=== PATIENT | male | born 1990 | race Caucasian/White ===

== ENCOUNTER 2017-07-04 05:05 | Emergency (ER) | payer OTHER, MEDICAID ==
[~2017-07-04] VITALS: Ht 170.2 cm; Wt 54.4 kg
[~2017-07-04 05:05] MED LIST: ALPRAZOLAM 0.0.25 MG PO; AMOXICILLIN 50500 MG PO; AMOXICILLIN500 M1 PO; BACTRIM DS TAB1 EACH PO; FLEXERIL PO; HYDROCODONE-AP1 EAC6 PO; IBUPROFEN 200200 M1 PO; IBUPROFEN 600600 M1 PO; IBUPROFEN 800800 M1 PO; IBUPROFEN 800800 MG PO; KEFLEX500 MG PO; LEVAQUIN 500 M500 M2 PO; LIDOCAINE VISC100 M1 SWISH&SPIT; LIDOCAINE VISC100 ML SWISH&SPIT; NAPROSYN500 MG PO; NAPROXEN 375 M375 M1 PO; NOHOMEMEDICATIONS; NORCO 10-325 T1 EAC1 PO; NORCO 5-325 TA1 EAC1 PO; NORCO 5-325 TA1 EACH PO; OTHER MISCELL; PENICILLIN V P500 MG PO; ROBAXIN 750 MG750 M1 PO; ROBAXIN500 MG PO; TRAMADOL 50 MG50 MG PO; TYLENOL325 MG PO; ULTRAM 50MG TAB50 MG PO; VEETIDS 250MG250 M1 PO; VICODIN 5-5001 EACH PO; XANAX 1 MG TABLE1 MG PO; XANAX1 MG; ZOFRAN ODT4 MG PO
[2017-07-04] MEDS ORDERED: NORCO 5-325 TA1 EACH PO (06:01)
[2017-07-04 06:27] VITALS: BP 131/88
== END 2017-07-04 06:28 | disposition home or self-care (01) ==
LOC: M.ERS 05:05
DX: S63.8X2A Sprain of other part of left wrist and hand, initial encounter (principal); F17.210 Nicotine dependence, cigarettes, uncomplicated; F41.9 Anxiety disorder, unspecified; Z88.5 Allergy status to narcotic agent; Z88.6 Allergy status to analgesic agent; Y04.2XXA Assault by strike against or bumped into by another person, initial encounter; Y93.89 Activity, other specified; Y92.89 Other specified places as the place of occurrence of the external cause; Y99.8 Other external cause status

== ENCOUNTER 2017-11-04 12:41 | Emergency (ER) | payer OTHER, MEDICAID ==
[~2017-11-04] VITALS: Ht 170.2 cm; Wt 54.4 kg
[2017-11-04] MEDS ORDERED: SEROQUEL 50 MG50 MG PO (12:57)
[2017-11-04] MEDS ORDERED: METHADOSE10 MG (12:58)
[2017-11-04 13:24] LABS: URINE BILIRUBIN NEGATIVE (Negative); URINE BLOOD NEGATIVE (Negative); URINE CLARITY CLEAR; URINE COLOR YELLOW; URINE GLUCOSE-RANDOM NEGATIVE (Negative); URINE KETONES NEGATIVE (Negative); URINE LEUKOCYTES-REFLEX NEGATIVE (Negative); URINE NITRITE-REFLEX NEGATIVE (Negative); URINE PROTEIN NEGATIVE (Negative); URINE SPECIFIC GRAVITY 1.015 (1.005-1.030)
[2017-11-04 13:44] LABS: ABSOLUTE EOSINOPHILS 0.2 thou/uL (0.0-0.7); ABSOLUTE LYMPHOCYTES 1.2 thou/uL (0.8-5.3); ABSOLUTE MONOCYTES 0.9 thou/uL (0.0-1.2); ABSOLUTE NEUTROPHILS 4.2 thou/uL (1.6-8.1); BASOPHILS 0.8 %; HEMATOCRIT 41.4 % (42.0-52.0); HEMOGLOBIN 13.8 gm/dL (14.0-18.0); LYMPHOCYTES 18.2 %; MCH 28.4 pg (26.0-34.0); MCHC 33.4 g/dL (28.0-37.0); MONOCYTES 13.2 %; NUCLEATED RBCS 0 /100WBC; PLATELET COUNT* 313 thou/uL (150-400); POLYS 64.8 %; RBC 4.87 mil/uL (4.50-6.00); RDW-CV 13.6 % (10.5-14.5); WBC 6.4 thou/uL (4.0-11.0)
[2017-11-04 13:59] LABS: CREATININE 0.8 mg/dL (0.6-1.3)
[2017-11-04 14:01] LABS: ALBUMIN 3.6 g/dL (3.4-5.0); TOTAL BILIRUBIN 0.4 mg/dL (<0.1-1.0); TOTAL PROTEIN 7.6 g/dL (6.4-8.2)
[2017-11-04] MEDS ORDERED: HYDROCODONE-AP1 EAC6 PO (14:14)
[2017-11-04] MEDS ORDERED: BACTRIM DS TAB1 EACH PO (14:14)
[2017-11-04 14:28] VITALS: BP 113/70
== END 2017-11-04 14:40 | disposition home or self-care (01) ==
LOC: M.ERS 12:41
PROVIDERS: Physician Assistant
DX: R10.30 Lower abdominal pain, unspecified (principal); F41.9 Anxiety disorder, unspecified; F17.210 Nicotine dependence, cigarettes, uncomplicated; Z88.5 Allergy status to narcotic agent; Z90.49 Acquired absence of other specified parts of digestive tract

== ENCOUNTER 2018-01-28 05:51 | Emergency (ER) | payer OTHER, MEDICAID ==
[~2018-01-28] VITALS: Ht 170.2 cm; Wt 56.7 kg
[~2018-01-28 05:51] MED LIST changes: +METHADOSE10 MG; +SEROQUEL 50 MG50 MG PO
[2018-01-28] MEDS ORDERED: PENICILLIN VK500 MG PO (06:10)
[2018-01-28] MEDS ORDERED: FLEXERIL PO (06:10)
[2018-01-28] MEDS ORDERED: HYDROCODON-ACE1 EAC7 PO (06:10)
[2018-01-28] MEDS ORDERED: IBUPROFEN 800800 MG PO (06:10)
[2018-01-28 06:33] VITALS: BP 99/68
== END 2018-01-28 06:33 | disposition home or self-care (01) ==
LOC: M.ERS 05:51
DX: M54.5 Low back pain (principal); K02.9 Dental caries, unspecified; F41.9 Anxiety disorder, unspecified; Z90.49 Acquired absence of other specified parts of digestive tract; F17.210 Nicotine dependence, cigarettes, uncomplicated; Z88.5 Allergy status to narcotic agent; Z88.8 Allergy status to other drugs, medicaments and biological substances

== ENCOUNTER 2019-02-01 09:36 | Emergency (ER) | payer OTHER ==
[~2019-02-01] VITALS: Ht 170.2 cm; Wt 61.2 kg
[~2019-02-01 09:36] MED LIST changes: +HYDROCODON-ACE1 EAC7 PO; +PENICILLIN VK500 MG PO
[2019-02-01] MEDS ORDERED: KEFLEX500 M1 PO ×2 (09:46→10:25)
[2019-02-01] MEDS ORDERED: BACTRIM DS TAB1 EACH PO ×2 (09:46→10:25)
[2019-02-01 10:03] VITALS: BP 122/75
== END 2019-02-01 10:11 | disposition home or self-care (01) ==
LOC: M.ERS 09:36
DX: L03.116 Cellulitis of left lower limb (principal); F41.9 Anxiety disorder, unspecified; F17.210 Nicotine dependence, cigarettes, uncomplicated; Z88.5 Allergy status to narcotic agent; Z88.6 Allergy status to analgesic agent; Z90.49 Acquired absence of other specified parts of digestive tract

== ENCOUNTER 2019-07-01 21:22 | Emergency (ER) | payer OTHER ==
[~2019-07-01] VITALS: Ht 170.2 cm; Wt 65.8 kg
[~2019-07-01 21:22] MED LIST changes: +KEFLEX500 M1 PO
[2019-07-01 21:53] LABS: INFLUENZA A ANTIGEN Positive (Negative); INFLUENZA B ANTIGEN Negative (Negative)
[2019-07-01] MEDS ORDERED: TAMIFLU75 MG PO (21:54)
[2019-07-01 22:07] VITALS: BP 133/67
== END 2019-07-01 22:08 | disposition home or self-care (01) ==
LOC: M.ERS 21:22
PROVIDERS: Nurse Practitioner Psychiatric/Mental Health
DX: J10.1 Influenza due to other identified influenza virus with other respiratory manifestations (principal); F41.9 Anxiety disorder, unspecified; F17.210 Nicotine dependence, cigarettes, uncomplicated; Z90.49 Acquired absence of other specified parts of digestive tract; Z98.890 Other specified postprocedural states

== ENCOUNTER 2019-10-13 00:17 | Emergency (ER) | payer OTHER ==
[~2019-10-13] VITALS: Ht 170.2 cm; Wt 68.0 kg
[~2019-10-13 00:17] MED LIST changes: +TAMIFLU75 MG PO
[2019-10-13 00:30] VITALS: BP 169/78
[2019-10-13] MEDS ORDERED: BACTRIM DS TAB1 EAC1 PO (00:36)
== END 2019-10-13 00:53 | disposition home or self-care (01) ==
LOC: M.ERS 00:17
DX: L08.9 Local infection of the skin and subcutaneous tissue, unspecified (principal); F17.210 Nicotine dependence, cigarettes, uncomplicated; Z90.49 Acquired absence of other specified parts of digestive tract